=== PATIENT | female | born 1980 | race Hispanic/Latino ===

== ENCOUNTER 2017-12-05 06:49 | Inpatient (IN) | payer BC, MEDICARE ==
[2017-11-29 11:16] VITALS: BMI 22.6
[2017-12-05] MEDS ORDERED: Propofol 10 mg/ml Inj (20 ML) ONE (07:33)
[2017-12-05] MEDS ORDERED: Rocuronium 10 mg/ml (5 ml) ONE (07:33)
[2017-12-05] MEDS ORDERED: Lidocaine 4% (Laryng-O-Jet) Kit MM ONE (07:33)
[2017-12-05] MEDS ORDERED: Succinylcholine 200 mg/10 ml Inj IV ONE (07:33)
[2017-12-05] MEDS ORDERED: Bupivacaine 0.5% Inj(30mL) ONE (07:37)
[2017-12-05] MEDS ORDERED: Silver Nitrate Topical - Stick ONE (07:38)
[2017-12-05] MEDS ORDERED: ePHEDrine 50 mg/ml Inj ONE (08:18)
[2017-12-05] MEDS ORDERED: Phenylephrine 10 mg/ml Inj ONE (08:19)
[2017-12-05] MEDS ORDERED: Midazolam 2 MG/2 ML VIAL ONE (08:19)
[2017-12-05 08:30] LABS: HEMOGLOBIN 9.5 g/dL (12.0-16.0); MEAN CELL VOLUME 79.6 fl (81.0-99.0); MEAN CORPUSCULAR HEMOGLOBIN 25.8 pg (27.0-31.0); MEAN CORPUSCULAR HGB CONC 32.4 g/dL (33.0-37.0); RBC 3.67 Mil/uL (3.80-5.20); RED CELL DISTRIBUTION WIDTH 16.5 % (11.5-14.5); WHITE BLOOD COUNT 4.7 K/uL (4.8-10.8)
[2017-12-05] MEDS ORDERED: Lactated Ringer's 1,000 ML IV ONE ×3 (09:25→11:55)
[2017-12-05] MEDS ORDERED: Dexamethasone 4 mg/1 ml ONE (09:45)
[2017-12-05] MEDS ORDERED: Desflurane Inhalation Anesthetic Liq (240 ml) ONE (11:06)
[2017-12-05] MEDS ORDERED: Naloxone 0.4 mg/ml Inj (Adult) IVP PRN (11:55)
--- NOTE | 2017-12-05 11:57 | CP.PCM.PN ---
Subjective - Date & Time of Evaluation Date of Evaluation: 12/05/17 Time of Evaluation: 11:57 - Subjective Subjective: Patient being admitted for post-operative pain management. Objective - Vital Signs/Intake and Output Vital Signs (last 24 hours): Temp Pulse Resp BP Pulse Ox 98.7 F 63 18 121/78 99 12/05/17 07:25 12/05/17 08:00 12/05/17 07:25 12/05/17 07:25 12/05/17 07:25 Intake and Output: 12/05/17 12/05/17 06:59 18:59 Intake Total 2000 Output Total 100 Balance 1900 - Medications Medications: Current Medications Hydromorphone HCl (Dilaudid) 0.5 mg IVP Q10M PRN PRN Reason: Pain, moderate (4-7) Stop: 12/05/17 13:54 Hydromorphone HCl (Dilaudid 0.2 Mg/Ml Microfilming Document Preparer) 0 mg IV PRN PRN; Protocol PRN Reason: Pain, moderate (4-7) Lactated Ringer's (Lactated Ringer's) 1,000 mls @ 125 mls/hr IV .Q8H ZIYAD Naloxone HCl (Narcan) 0.1 mg IVP Q2M PRN PRN Reason: Opiate reversal - Labs Labs: 12/05/17 08:11
[2017-12-05] MEDS: HYDROmorphone 0.5 mg/0.5 ml ISec IVP PRN ×2 (12:10→12:30)
[2017-12-05] MEDS ORDERED: DiphenhydrAMINE 50 mg/ml Inj IVP PRN (12:51)
[2017-12-05] MEDS: ceFAZolin 2 GM in Sodium Chloride 0.9% 100 ML IVPB SCH ×2 (19:41→23:35)
[2017-12-05] MEDS: Lactated Ringer's 1,000 ML IV SCH (20:00)
[2017-12-06] MEDS: Lactated Ringer's 1,000 ML IV SCH ×2 (04:00→05:49)
[2017-12-06 06:27] LABS: HEMOGLOBIN 8.3 g/dL (12.0-16.0); MEAN CELL VOLUME 79.3 fl (81.0-99.0); MEAN CORPUSCULAR HGB CONC 32.8 g/dL (33.0-37.0); RBC 3.21 Mil/uL (3.80-5.20); RED CELL DISTRIBUTION WIDTH 16.5 % (11.5-14.5); WHITE BLOOD COUNT 12.2 K/uL (4.8-10.8)
[2017-12-06 07:14] LABS: BLOOD UREA NITROGEN 9 mg/dl (7-17); CALCIUM 8.1 mg/dL (8.4-10.2); GFR AFRICAN-AMERICAN > 60; GFR NON-AFRICAN AMERICAN > 60
[2017-12-06] MEDS: ceFAZolin 2 GM in Sodium Chloride 0.9% 100 ML IVPB SCH (09:30)
--- NOTE | 2017-12-06 13:46 | CP.PCM.PN ---
Subjective - Date & Time of Evaluation Date of Evaluation: 12/06/17 Time of Evaluation: 11:00 - Subjective Subjective: Patient states she is doing well, +void, OOB, and is comfortable currently. tolerating PO, but didn't eat much bc she didn't like the food. Patient is under care of pain mgmt, and was instructed to follow up with them in office tomorrow. Dr. Hermosillo notified of plan. Objective - Vital Signs/Intake and Output Vital Signs (last 24 hours): Temp Pulse Resp BP Pulse Ox 98.2 F 66 20 97/62 L 100 12/06/17 07:57 12/06/17 07:57 12/06/17 07:57 12/06/17 07:57 12/06/17 07:57 - Medications Medications: Current Medications Diphenhydramine HCl (Benadryl) 25 mg IVP ONCE PRN PRN Reason: Nausea/Vomiting Fentanyl (Duragesic) 1 patch TD Q3D ZIYAD PRN Reason: Protocol Last Admin: 12/05/17 15:30 Dose: Not Given Metoclopramide HCl (Reglan) 10 mg IVP ONCE PRN PRN Reason: Nausea/Vomiting Naloxone HCl (Narcan) 0.1 mg IVP Q2M PRN PRN Reason: Opiate reversal Ondansetron HCl (Zofran Inj) 4 mg IVP Q6 PRN PRN Reason: Nausea/Vomiting - Labs Labs: 12/06/17 05:40 12/06/17 05:30 - GI/Abdominal Exam GI & Abdominal Exam: Soft Additional comments: mild distention, incisions intact, scant sang drainage, abd soft, mild tenderness calves soft NT neg homans pt sitting in chair encouraged OOB Assessment and Plan (1) Endometriosis Assessment & Plan: POD# 1 s/p excision and ablation of endometriosis, left salpingectomy, cysto, stenting of ureters and dye injection, excision of right endometrioma -d/w Dr. Hermosillo, plan d/c home after resolution of pain mgmt encourage OOB diet advanced d/c IVF Status: Acute
[2017-12-06 16:55] VITALS: BP 115/71; PULSE 82; RESP 18; TEMP 99.2; O2SAT 98
[2017-12-06] MEDS ORDERED: Oxycodone/Acetaminophen 5/325 mg Tab PO STA (18:38)
--- NOTE | 2017-12-10 08:51 | PCM.OP ---
Operative Report - Operative Report Date of Surgery/Procedure: 12/05/17 Time of Surgery/Procedure: 08:00 Surgeon: Dr. Venkata Montes De Oca Case Coordinator: Dr. Russell Hermosillo Anesthesia/Sedation: general/Dr. Quinteros Pre-Operative Diagnosis: abdominal pain, endometriosis and previous lap band surgery followed by gastric sleeve resection for obesity Post-Operative Diagnosis: same Indication for Surgery: as above Operative Findings: Significant adhesions from the multiple previous surgeries plus appendiceal involvement Procedure/Operation Description: 1-Appendectomy. 2-Extensive lysis of adhesions. Brief History: This is a 37 year old woman who had multiple previous surgeries including lap band procedure followed by a sleeve gastrectomy for obesity. Dr. Jaimee champagne initiated the robotic procedure when he noted multipel adhesions and asked for intraoperative consutation. Description of the Procedure: Dr. Hermosillo had already intiated the robotic procedure ( separate dictation Dr. Hermosillo). Aftert taking control of the robotic console multiple, extensive adhesions were encountered from the anterior abdominal wall from the umbilicus to the pelvis. With blunt and sharp dissection with the aid of electrocautery the adhesions were gnetly lysed. Once completed the appedix was nopted to have possible invovlement and with the appendix retracted anteriorly the mesentery was dessicated with particular attention to the appendiceal artery. Oncce dissected to the base three 3-0 PDS endo-loops were placed in the usual manner and the appendix was trasected. The remnant stump mucosa was gently dessicted with electrocautery. The specimen was removed, marked and sent to pathology separately. The operation was then turned over to Dr. Hermosillo (separate dictation Dr. Hermosillo). Estimated Blood Loss: 10 cc Sponge/Instrument Count: correct Complications: none Specimen: 1-appendix Discharge & Condition: stable
--- NOTE | 2017-12-11 21:16 | OP ---
PROCEDURE DATE: PREOPERATIVE DIAGNOSES: Pelvic pain severe, history of severe endometriosis, history of pelvic adhesions, bladder pain, dyspareunia and dysmenorrhea. POSTOPERATIVE DIAGNOSES: Pelvic pain severe, history of severe endometriosis, history of pelvic adhesions, bladder pain, dyspareunia, dysmenorrhea, pelvic adhesions, endometriosis, left hydrosalpinx, right ovarian cyst, pelvic and abdominal endometriosis. PROCEDURE PERFORMED: Cystoscopy with bilateral ureteral catheterization, hysteroscopy, robotic laparoscopy, with da Andreina, bilateral ureterolysis, right ovarian cystectomy, left salpingectomy, and excision of pelvic endometriosis. Dr Montes De Oca from General Surgery called in and will dictate separately, lysis of adhesion and appendectomy. SURGEON: Russell Hermosillo MD [employer]OR[employer] TEAM MARKETING INTERN: Venkata Montes De Oca MD. TYPE OF ANESTHESIA: General endotracheal. ANESTHESIA ADMINISTERED BY: Dr. Quinteros. COMPLICATIONS: None. SPECIMENS: Appendix, abdominal wall endometriosis, left fallopian tube with hydrosalpinx, inguinal canal endometriosis, left and right periurethral endometriosis and posterior cervical endometriosis. INDICATION FOR THE PROCEDURE: This patient is a 37-year-old female with a long history of severe pelvic pain secondary to the presence of endometriosis. Her original surgery was 20 years ago, and I was actually involved in her care. Subsequently, the patient had multiple surgeries and she had been doing moderately well; although, she had been on extensive narcotic treatments including fentanyl patches. The patient also had a very complex surgical history, having had also a weight loss surgery for which she was operated twice. Prior to the surgery, the patient was counseled with regards to all the risk and benefits of the procedure. She also understood that this was a quite complex procedure and that it was more complex of the average endometriosis surgery. She also understood that due to the complexity of the procedure, it was necessary to place urethral stent and utilize the fluorescent dye to identify the uterus. Prior to the surgery, the patient was counseled with regards to risk and benefits of the procedure. Prior to the surgery, she also reiterated and desired to move forward with the surgery and she was taken to the OR after signing a consent. DESCRIPTION OF PROCEDURE: After adequate anesthesia was obtained, the patient was placed in a dorsal lithotomy position. She was prepped and draped, every area prone to pressure was extensively padded and extreme care was placed throughout the surgery not to hyperextend or hyperflex her hips. At this point, attention was in the vaginal area where a cystoscope was placed into the bladder. The bladder was gently distended and appeared to be free of lesions and tumors. Both ureters were in the normal anatomical positions. At this point, the left ureteral ostia was catheterized utilizing a 5-Serbian open ended stent all the way to the distal ureter and 5 mL of IC-Green were injected. The catheter was then retracted. At this point, on the right-hand side similarly the catheter was introduced into the right ureteral ostia all the way to the distal ureter and 5 mL of IC-Green were also injected. At this point, the Long was placed into the bladder and attention was in the vaginal area where speculum was placed in the vagina. The anterior lip of the cervix was grasped. The cervix was widely dilated and a hysteroscope was placed in the uterine cavity appearing to be normal without any lesions. At this point, a uterine manipulator was placed in the uterus and attention was on the abdomen. After re-gowning and re-gloving, attention was on the abdomen where an open laparoscopy procedure was performed with extreme care secondary to the patient's prior surgeries. The peritoneum was entered bluntly and a cannula was inserted. The abdomen was insufflated. Additional 3 trocars were placed and the da andreina robot was docked. Findings are as follows; the patient had evidence of extensive post-surgical changes. She had evidence of significant adhesive disease especially in the pelvis. Her left fallopian tube was a hydrosalpinx with very large implants of inflammatory type. She also had evidence of endometriosis on both right and left pelvic sidewall and also evidence of endometriosis extra pelvically. Dr Venkata Montes De Oca from General Surgery was called in and the procedure with dissection which involved dissecting some of the adhesions as well as performing an appendectomy which he will dictate separately. At this point, attention was first on the extra pelvic lesions which were excised. There was peritoneal lesions by the left inguinal canal also like on the abdominal wall on the right-hand side. At this point, attention was on the pelvis on the left-hand side where after identifying the ureter utilizing fluorescent technology, the retroperitoneum was entered and the progressive dissection was performed. First medialized the peritoneum containing endometriosis and lateralizing the ureter which was dissected out . A large area of peritoneum containing endometriosis was then dissected. Similarly, in the left ovarian fossa again after identifying the uterine artery, a full dissection was performed, dissecting a large area of peritoneum containing endometriosis. The posterior cervical area at this point was also excised including a perirectal area lesion. At this point, attention was in the right-hand side where after elevating the ovary, we noticed a cyst which contained a chocolate like fluid. The cyst was either a cystadenoma or an endometrioma. The cyst was then gently dissected off and enucleated without any complication. At this point, the left pelvic sidewall was identified. The ureter was identified utilizing fluorescence and the peritoneum was entered. The ureter was lateralized and the peritoneum was medialized and a full dissection was performed excising a large area of peritoneum containing endometriosis. The left fallopian tube being abnormal was elevated and it was progressively dissected off along the mesosalpinxwith extreme care not to devascularize the ovary and it was then sent to pathology. At this point, it was checked for hemostasis, that appeared to be excellent. The pelvis was in perfect condition. The abdomen was desufflated after undocking the da Andreina robot, the instruments were removed and the patient was taken to recovery room in excellent condition. Russell Hermosillo MD MTDJose Francisco
== END 2017-12-06 19:50 | disposition home or self-care (01) | DRG 743 ==
LOC: H.OPSURG 06:49 → H.MEDSURG1 13:03 → H.OPSURG 13:03 → H.MEDSURG1 15:57
PROVIDERS: ADMIT Obstetrics & Gynecology Reproductive Endocrinology; ATTEND Obstetrics & Gynecology Reproductive Endocrinology
PROC: 0UJ84ZZ Inspection of Fallopian Tube, Percutaneous Endoscopic Approach (ICD-10-PCS; 2017-12-05)
PROC: 0TN70ZZ Release Left Ureter, Open Approach (ICD-10-PCS; 2017-12-05)
PROC: 0TN60ZZ Release Right Ureter, Open Approach (ICD-10-PCS; 2017-12-05)
PROC: 0DTJ0ZZ Resection of Appendix, Open Approach (ICD-10-PCS; 2017-12-05)
PROC: 8E0W0CZ Robotic Assisted Procedure of Trunk Region, Open Approach (ICD-10-PCS; 2017-12-05)
PROC: 0DBW0ZZ Excision of Peritoneum, Open Approach (ICD-10-PCS; principal; 2017-12-05 08:30)
PROC: 0UB00ZZ Excision of Right Ovary, Open Approach (ICD-10-PCS; 2017-12-05 08:30)
PROC: 0UT60ZZ Resection of Left Fallopian Tube, Open Approach (ICD-10-PCS; 2017-12-05 08:30)
DX: N80.3 Endometriosis of pelvic peritoneum (principal); N70.11 Chronic salpingitis; N99.4 Postprocedural pelvic peritoneal adhesions; N83.291 Other ovarian cyst, right side; N80.5 Endometriosis of intestine; N80.2 Endometriosis of fallopian tube; N80.1 Endometriosis of ovary; Z98.84 Bariatric surgery status; Z88.1 Allergy status to other antibiotic agents; Z91.012 Allergy to eggs